=== PATIENT | male | born 1995 | race African-American/Black ===

== ENCOUNTER 2018-12-10 12:38 | Emergency (ER) | payer OTHER ==
[2018-12-10 12:43] VITALS: BP 116/75; PULSE 54; TEMP 97.6; BMI 26.2
--- NOTE | 2018-12-10 12:51 | PDOC ---
History of Present Illness - General Chief Complaint: Pain Stated Complaint: NECK PAIN Time Seen by Provider: 12/10/18 12:45 Past History - Past Medical History Allergies/Adverse Reactions: Allergies Allergy/AdvReac Type Severity Reaction Status Date / Time No Known Allergies Allergy Verified 12/10/18 12:40 Home Medications: Ambulatory Orders Cephalexin Monohydrate [Keflex -] 500 mg PO BID #14 capsule 12/10/18 Ibuprofen 600 mg PO Q6H #30 tablet 12/10/18 Sulfamethoxazole/Trimethoprim [Bactrim Ds -] 1 tab PO BID #14 tablet 12/10/18 COPD: No - Surgical History Abdominal Surgery: Yes (hernia) - Suicide/Smoking/Psychosocial Hx Smoking History: Never smoked Have you smoked in the past 12 months: No Information on smoking cessation initiated: No Hx Alcohol Use: No Drug/Substance Use Hx: No *Physical Exam - Vital Signs Last Vital Signs Temp Pulse Resp BP Pulse Ox 97.6 F 54 L 18 116/75 100 12/10/18 12:40 12/10/18 12:40 12/10/18 12:40 12/10/18 12:40 12/10/18 12:40 ED Treatment Course - LABORATORY CBC & Chemistry Diagram: 12/10/18 12:59 12/10/18 12:59 *DC/Admit/Observation/Transfer - Prescriptions Prescriptions: Cephalexin Monohydrate [Keflex -] 500 mg PO BID #14 capsule Ibuprofen 600 mg PO Q6H #30 tablet Sulfamethoxazole/Trimethoprim [Bactrim Ds -] 1 tab PO BID #14 tablet - Referrals Referrals: Yen Grullon MD [Staff Physician] - - Patient Instructions Printed Discharge Instructions: DI for Cellulitis -- Adult Additional Instructions: You have cellulitis. This is a skin infection. Please take the Bactrim and Keflex twice a day for one week. Please take all the antibiotics even if you feel better. You may use warm water soaks to the area. Please do this approximately 4-5 times a day. Please avoid shaving the skin around the area of redness. You may take Tylenol or Motrin as needed for pain. Please follow up with your primary care doctor in 1 week. Return to the emergency department if you have worsening redness, fevers, increasing pain, or have any changes in your symptoms. - Post Discharge Activity
[2018-12-10] MEDS ORDERED: IBUPROFEN 600 MG TABLET (FP) PO ONE ×2 (12:58→13:00)
[2018-12-10 13:20] LABS: BASO % 0.7 % (0-2.0); EOS % 0.2 % (0-4.5); HEMATOCRIT 39.9 % (35.4-49); HEMOGLOBIN 12.9 GM/dL (11.7-16.9); LYMPH % 25.1 % (8-40); MCH 26.9 pg (25.7-33.7); MCHC 32.4 g/dl (32.0-35.9); MEAN CELL VOLUME 82.9 fl (80-96); MEAN PLT VOLUME 8.9 fl (7.5-11.1); MONO % 6.6 % (3.8-10.2); NEUT % 67.4 % (42.8-82.8); PLATELET COUNT 182 K/MM3 (134-434); RBC 4.81 M/mm3 (4.00-5.60); RDW 13.6 % (11.9-15.9); WHITE BLOOD COUNT 7.3 K/mm3 (4.0-10.0)
[2018-12-10 13:45] LABS: ALBUMIN 3.8 g/dl (3.4-5.0); BILIRUBIN,TOTAL 0.8 mg/dL (0.2-1); CALCIUM 8.7 mg/dL (8.5-10.1); CREATININE 1.1 mg/dL (0.55-1.3); POTASSIUM 4.1 mmol/L (3.5-5.1); TOT PROT 6.9 g/dl (6.4-8.2)
== END 2018-12-10 14:20 | disposition home or self-care (01) ==
LOC: JERFT 12:38
DX: L03.221 Cellulitis of neck (principal)
CPT/HCPCS: 36415; 80053; 85025; 99281-25

== ENCOUNTER 2018-12-23 10:50 | Day surgery (SDC) | payer OTHER | END 2018-12-23 16:45 | disposition home or self-care (01) | LOC: JASU-SURG 10:50 ==

== ENCOUNTER 2018-12-25 12:06 | Emergency (ER) | payer OTHER | END 2018-12-25 12:56 | disposition home or self-care (01) | LOC: JERFT 12:06 ==